=== PATIENT | male | born 1995 | race African-American/Black ===

== ENCOUNTER 2017-08-06 05:02 | Emergency (ER) | payer OTHER ==
[2017-08-06 06:14] LABS: #Basophils 0.1 thou/uL (0.0-0.2); #Eosinphils 0.2 thou/uL (0.0-0.7); #Lymphocytes 2.5 thou/uL (1.20-3.40); #Monocytes 0.6 thou/uL (0.11-0.59); #Neutrophils 2.9 thou/uL (1.40-6.50); %Basophils 1.5 % (0.0-1.0); %Eosinophils 2.8 % (0.0-10.0); %Lymphocytes 39.5 % (21.0-51.0); %Monocytes 8.8 % (0.0-10.0); Hematocrit 47.2 % (42.0-52.0); Red Blood Cell (RBC) Count 5.49 mill/uL (4.70-6.10); White Blood Cell (WBC) Count 6.2 thou/uL (4.8-10.8)
[2017-08-06 06:29] LABS: ALT (SGPT) 32 U/L (8-55); AST (SGOT) 21 U/L (5-34); Alkaline Phosphatase 43 U/L (40-150); Anion Gap 9 mmol/L (10-20); BUN (Urea Nitrogen) 10 mg/dL (8.9-20.6); Bilirubin, Total 0.5 mg/dL (0.2-1.2); Calc. Creatinine Clearance 0 mL/min (70-130); Calcium 9.2 mg/dL (7.8-10.44); Carbon Dioxide 25 mmol/L (22-29); Chloride 108 mmol/L (98-107); Estimated GFR-MDRD Greater than 90; Globulin 2.7 g/dL (2.4-3.5); Protein, Total 6.5 g/dL (6.0-8.3)
--- NOTE | 2017-08-08 20:13 | EKG ---
Test Reason : DIZZINESS Blood Pressure : / mmHG Vent. Rate : 071 BPM Atrial Rate : 071 BPM P-R Int : 144 ms QRS Dur : 088 ms QT Int : 382 ms P-R-T Axes : 047 018 022 degrees QTc Int : 415 ms Normal sinus rhythm with sinus arrhythmia Normal ECG Confirmed by EVIE BANEGAS D.O. ([id number]), map editor RAMÍREZ VALDIVIA ([id number] on 08/08/2017 8:12:57 PM Referred By: Confirmed By:EVIE BANEGAS D.O.
== END 2017-08-06 07:12 | disposition home or self-care (01) ==
LOC: ERS 05:02
DX: E86.0 Dehydration (principal); J45.909 Unspecified asthma, uncomplicated
CPT/HCPCS: 36415; 80053; 85025; 93005; 96360

== ENCOUNTER 2017-12-30 01:37 | Emergency (ER) | payer BC, OTHER ==
[2017-12-30] MEDS ORDERED: Ibuprofen 800 MG TAB ONE (02:24)
== END 2017-12-30 02:37 | disposition home or self-care (01) ==
LOC: ERS 01:37
DX: H66.91 Otitis media, unspecified, right ear (principal); J45.909 Unspecified asthma, uncomplicated
CPT/HCPCS: 99282

== ENCOUNTER 2018-08-13 04:45 | Emergency (ER) | payer BC ==
[2018-08-13] MEDS ORDERED: Metoclopramide HCl 10 MG/2 ML VIAL ONE (05:10)
[2018-08-13] MEDS ORDERED: Ketorolac Tromethamine 30 MG/ML VIAL ONE (05:10)
[2018-08-13] MEDS ORDERED: Dexamethasone 10 MG/ML VIAL ONE (05:10)
[2018-08-13] MEDS ORDERED: Sodium Chloride 0.9% 100 ML ONE (05:10)
--- NOTE | 2018-08-13 08:26 | RAD ---
SINGLE VIEW CHEST: Date: 08/13/18 HISTORY: Headache and fever. FINDINGS: Single view of the chest shows a normal sized cardiomediastinal silhouette. There is no evidence of c onsolidation, mass, or pleural effusion. The bones are unremarkable. IMPRESSION: No evidence of acute cardiopulmonary disease. POS: [facility]ET
== END 2018-08-13 06:47 | disposition home or self-care (01) ==
LOC: ERS 04:45
DX: J01.90 Acute sinusitis, unspecified (principal); J45.909 Unspecified asthma, uncomplicated
CPT/HCPCS: 71045; 87081; 87430; 87804; 96374; 96375; J1100; J1885; J2765; J7050

== ENCOUNTER 2018-12-20 08:49 | Emergency (ER) | payer BC, SELFPAY ==
[2018-12-20] MEDS ORDERED: Metoclopramide HCl 10 MG TAB ONE (09:48)
[2018-12-20] MEDS ORDERED: Ibuprofen 200 MG TAB ONE (09:48)
[2018-12-20] MEDS ORDERED: diphenhydrAMINE 25 MG CAP ONE (09:48)
== END 2018-12-20 10:47 | disposition home or self-care (01) ==
LOC: ERS 08:49
DX: G43.909 Migraine, unspecified, not intractable, without status migrainosus (principal); J45.909 Unspecified asthma, uncomplicated
CPT/HCPCS: 99283; J8597; Q0163